=== PATIENT | male | born 1985 | race Two or more races ===

== ENCOUNTER 2018-04-20 09:39 | Day surgery (SDC) | payer OTHER ==
[2018-04-20] MEDS ORDERED: CEFAZOLIN SODIUM/DEXTROSE,ISO 50 ML IV ONE (11:43)
[2018-04-20] MEDS ORDERED: BACITRACIN 50000 UNITS/VIAL ONE (12:19)
[2018-04-20] MEDS ORDERED: BUPIVACAINE MPF 0.75% 30 ML VIAL ONE ×2 (12:19→12:31)
[2018-04-20] MEDS ORDERED: MIDAZOLAM HCL 2 MG/2ML VIAL ONE (12:25)
[2018-04-20] MEDS ORDERED: CLINDAMYCIN 900 MG/6 ML VIAL ONE (12:26)
[2018-04-20] MEDS ORDERED: HYDROMORPHONE INJ 2 MG/ML DISP.SYRIN ONE (13:29)
[2018-04-20] MEDS ORDERED: MEPERIDINE HCL/PF 100 MG/ML DISP.SYRIN ONE (14:24)
[2018-04-20] MEDS ORDERED: oxyCODONE/APAP (5/325 MG) 1 UDTAB TABLET ONE (15:15)
== END 2018-04-20 16:27 | disposition home or self-care (01) ==
LOC: DS 09:39
PROVIDERS: ATTEND Student in an Organized Health Care Education/Training Program
DX: S82.61XA Displaced fracture of lateral malleolus of right fibula, initial encounter for closed fracture (principal); X58.XXXA Exposure to other specified factors, initial encounter; Y93.89 Activity, other specified; Y92.89 Other specified places as the place of occurrence of the external cause; G89.18 Other acute postprocedural pain; Y99.8 Other external cause status; F17.210 Nicotine dependence, cigarettes, uncomplicated; Z88.0 Allergy status to penicillin; Z88.5 Allergy status to narcotic agent; Z83.3 Family history of diabetes mellitus; Z80.8 Family history of malignant neoplasm of other organs or systems; Z88.8 Allergy status to other drugs, medicaments and biological substances
CPT/HCPCS: 27792; 64445; 73600; A4606; A6253; A6402 ×2; C1713; J0690; J1100; J1170; J2175; J2250; J2405; J2704; J3490 ×3